=== PATIENT | male | born 1955 | race Caucasian/White ===

== ENCOUNTER 2017-10-01 18:40 | Inpatient (IN) | payer MEDICARE ==
--- NOTE | 2017-10-01 18:50 | ED ---
General Adult HPI - General Stated complaint: Chest Pain Time Seen by Provider: 10/01/17 18:49 - History of Present Illness Initial comments: Dominguez Engle is a 62-year-old male with a past medical history of coronary artery disease within and STEMI in the past, and addition he has a history of alcoholism he is currently in treatment for alcohol detox, he is day 11 and his treatment facility. He presents to the emergency department today for evaluation of chest pain. Patient reports that on Sunday he was walking upstairs when he developed pain in the left side of his chest radiating to his jaw and his arm. It's that the pain improves with rest but has occurred intermittently since that time and every time it has occurred a has been worse. Today he told the providers at the rehab facility that he was experiencing this pain and they with this decision to 911 for transfer to the emergency department for evaluation. states that this pain is identical in nature to his previous myocardial infarction. He states that that occurred in 2013, he states that he had a cardiac cath at that time but no stents were placed. He was told by his graphic production artist that if it occurred again he would have to have stents placed. Patient previously followed with cardiology at an outside hospital. - Related Data Home Medications Medication Instructions Recorded Confirmed Acetaminophen [Tylenol] 650 mg PO Q4H PRN 10/01/17 10/01/17 Calcium/Magnesium 1000mg/500mg 1 tab PO TID PRN 10/01/17 10/01/17 Chlorpheniramine Maleate 4 mg PO Q4H PRN 10/01/17 10/01/17 [Chlor-Trimeton] Fluphenazine HCl [fluPHENAZine HCL] 1 mg PO DAILY@0600 10/01/17 10/01/17 Ibuprofen [Motrin] 600 mg PO Q6HR PRN 10/01/17 10/01/17 Multivitamins, Thera [Multivitamin 1 tab PO DAILY 10/01/17 10/01/17 (formulary)] Nicotine 21Mg/24Hr Patch [Habitrol 1 patch TRANSDERM DAILY 10/01/17 10/01/17 21Mg/24Hr Patch] Ondansetron HCl [Zofran] 8 mg PO Q6H PRN 10/01/17 10/01/17 Ondansetron [Zofran] 4 mg IM Q6H PRN 10/01/17 10/01/17 PARoxetine [Paxil] 20 mg PO DAILY@0600 10/01/17 10/01/17 Pantoprazole Sodium [Protonix] 40 mg PO DAILY@0600 10/01/17 10/01/17 Thiamine [Vitamin B-1] 100 mg PO DAILY 10/01/17 10/01/17 busPIRone HCl [Buspar] 10 mg PO DIRECTED PRN 10/01/17 10/01/17 cloNIDine HCL [Catapres] 0.1 mg PO Q4H PRN 10/01/17 10/01/17 guaiFENesin [guaiFENesin Oral 200 mg PO Q4H PRN 10/01/17 10/01/17 Solution] traZODone HCL 50 - 150 mg PO HS 10/01/17 10/01/17 Allergies Allergy/AdvReac Type Severity Reaction Status Date / Time ketorolac [From Toradol] Allergy Severe Rash/Hives Verified 10/01/17 19:03 nitroglycerin Allergy Severe Rash/Hives Verified 10/01/17 19:03 morphine Allergy Unknown Verified 10/01/17 19:03 Review of Systems ROS Statement: Those systems with pertinent positive or pertinent negative responses have been documented in the HPI. ROS Other: All systems not noted in ROS Statement are negative. Constitutional: Denies: fever ENT: Denies: ear pain, throat pain Respiratory: Denies: cough, dyspnea Cardiovascular: Reports: chest pain, dyspnea on exertion Endocrine: Denies: fatigue Gastrointestinal: Denies: abdominal pain, nausea, vomiting Genitourinary: Denies: urgency, dysuria Musculoskeletal: Denies: back pain Skin: Denies: rash Neurological: Denies: headache Psychiatric: Reports: anxiety Hematological/Lymphatic: Denies: easy bleeding, easy bruising Past Medical History Past Medical History: Cancer (esophageal - treated with radiation 2013), Hyperlipidemia, Myocardial Infarction ([place]) General Exam Limitations: no limitations General appearance: alert, anxious Head exam: Present: atraumatic, normocephalic Eye exam: Present: PERRL ENT exam: Present: normal exam Respiratory exam: Absent: respiratory distress Cardiovascular Exam: Present: regular rate, normal rhythm GI/Abdominal exam: Present: soft. Absent: distended Rectal exam: Present: deferred Extremities exam: Present: full ROM, normal capillary refill Neurological exam: Present: alert, oriented X3 Psychiatric exam: Present: agitated Skin exam: Present: warm, dry Course Vital Signs 10/01/17 10/01/17 10/01/17 18:52 19:50 21:00 Temperature 101.4 F H 100.2 F H Pulse Rate 94 92 89 Respiratory 18 16 18 Rate Blood Pressure 136/81 114/62 122/69 O2 Sat by Pulse 98 97 96 Oximetry 10/01/17 21:37 Temperature 100.2 F H Pulse Rate 90 Respiratory 18 Rate Blood Pressure 123/67 O2 Sat by Pulse 95 Oximetry Medical Decision Making - Medical Decision Making The patient was seen and evaluated, history was obtained from the patient, patient with intermittent left-sided chest pain, worse with exertion. This has been occurring since Sunday. It is associated with pain radiating to the jaw the shoulder. Patient is high risk for acute coronary syndrome as he has a history of coronary artery disease. Imaging were ordered EKG reveals a normal sinus rhythm with a rate of 96 There was a delay in attaining blood due to patient's vascular the, patient is a previous IV heroin user with very poor access. He states that previously he has had have IVs placed in his neck. POTASH FLAKER was able to place an IV and obtained blood. Labs reveal anemia with a hemoglobin of 10.6, no leukocytosis, Cardiac labs are normal Considering the patient's history and risk factors I do feel that he needs to be admitted for evaluation by cardiology. The patient is to be placed in observation on telemetry monitoring. - Lab Data Result diagrams: 10/01/17 20:12 10/01/17 18:56 Lab Results 10/01/17 10/01/17 10/01/17 Range/Units 18:56 20:12 20:12 WBC 8.0 (3.8-10.6) k/uL RBC 4.15 L (4.30-5.90) m/uL Hgb 10.6 L (13.0-17.5) gm/dL Hct 32.8 L (39.0-53.0) % MCV 79.1 L (80.0-100.0) fL MCH 25.6 (25.0-35.0) pg MCHC 32.3 (31.0-37.0) g/dL RDW 16.5 H (11.5-15.5) % Plt Count 153 (150-450) k/uL Neutrophils % 71 % Lymphocytes % 17 % Monocytes % 7 % Eosinophils % 1 % Basophils % 0 % Neutrophils # 5.7 (1.3-7.7) k/uL Lymphocytes # 1.4 (1.0-4.8) k/uL Monocytes # 0.5 (0-1.0) k/uL Eosinophils # 0.1 (0-0.7) k/uL Basophils # 0.0 (0-0.2) k/uL Anisocytosis Slight Microcytosis Slight PT 9.9 (9.0-12.0) sec INR 1.0 (<1.2) APTT 26.6 (22.0-30.0) sec Sodium 138 (137-145) mmol/L Potassium 4.5 (3.5-5.1) mmol/L Chloride 106 (98-107) mmol/L Carbon Dioxide 23 (22-30) mmol/L Anion Gap 9 mmol/L BUN 20 (9-20) mg/dL Creatinine 0.70 (0.66-1.25) mg/dL Est GFR (CKD-EPI)AfAm >90 (>60 ml/min/1.73 sqM) Est GFR (CKD-EPI)NonAf >90 (>60 ml/min/1.73 sqM) Glucose 90 (74-99) mg/dL Calcium 8.8 (8.4-10.2) mg/dL Magnesium 1.8 (1.6-2.3) mg/dL Total Bilirubin 0.6 (0.2-1.3) mg/dL AST 34 (17-59) U/L ALT 45 (21-72) U/L Alkaline Phosphatase 98 (38-126) U/L Total Creatine Kinase (55-170) U/L CK-MB (CK-2) (0.0-2.4) ng/mL CK-MB (CK-2) Rel Index Troponin I (0.000-0.034) ng/mL NT-Pro-B Natriuret Pep pg/mL Total Protein 6.5 (6.3-8.2) g/dL Albumin 3.6 (3.5-5.0) g/dL 10/01/17 10/01/17 Range/Units 20:12 20:12 WBC (3.8-10.6) k/uL RBC (4.30-5.90) m/uL Hgb (13.0-17.5) gm/dL Hct (39.0-53.0) % MCV (80.0-100.0) fL MCH (25.0-35.0) pg MCHC (31.0-37.0) g/dL RDW (11.5-15.5) % Plt Count (150-450) k/uL Neutrophils % % Lymphocytes % % Monocytes % % Eosinophils % % Basophils % % Neutrophils # (1.3-7.7) k/uL Lymphocytes # (1.0-4.8) k/uL Monocytes # (0-1.0) k/uL Eosinophils # (0-0.7) k/uL Basophils # (0-0.2) k/uL Anisocytosis Microcytosis PT (9.0-12.0) sec INR (<1.2) APTT (22.0-30.0) sec Sodium (137-145) mmol/L Potassium (3.5-5.1) mmol/L Chloride (98-107) mmol/L Carbon Dioxide (22-30) mmol/L Anion Gap mmol/L BUN (9-20) mg/dL Creatinine (0.66-1.25) mg/dL Est GFR (CKD-EPI)AfAm (>60 ml/min/1.73 sqM) Est GFR (CKD-EPI)NonAf (>60 ml/min/1.73 sqM) Glucose (74-99) mg/dL Calcium (8.4-10.2) mg/dL Magnesium (1.6-2.3) mg/dL Total Bilirubin (0.2-1.3) mg/dL AST (17-59) U/L ALT (21-72) U/L Alkaline Phosphatase (38-126) U/L Total Creatine Kinase 51 L (55-170) U/L CK-MB (CK-2) 0.2 (0.0-2.4) ng/mL CK-MB (CK-2) Rel Index 0.4 Troponin I <0.012 (0.000-0.034) ng/mL NT-Pro-B Natriuret Pep 75 pg/mL Total Protein (6.3-8.2) g/dL Albumin (3.5-5.0) g/dL Disposition Clinical Impression: Chest pain, Anemia, CAD (coronary artery disease) Disposition: ADMITTED IP TO THIS HOSP Referrals: None,Stated [Primary Care Provider] - 1-2 days Decision Time: 22:25
[2017-10-01] MEDS ORDERED: SODIUM CHLORIDE 0.9% 1,000 ML IV STA (18:56)
[2017-10-01 20:10] LABS: Creatine Kinase 51 U/L (55-170)
[2017-10-01 20:13] LABS: ALT 45 U/L (21-72); AST 34 U/L (17-59); Albumin 3.6 g/dL (3.5-5.0); Alkaline Phosphatase 98 U/L (38-126); Anion Gap 9 mmol/L; Blood Urea Nitrogen 20 mg/dL (9-20); Calcium 8.8 mg/dL (8.4-10.2); Carbon Dioxide 23 mmol/L (22-30); Chloride 106 mmol/L (98-107); Glucose 90 mg/dL (74-99); Magnesium 1.8 mg/dL (1.6-2.3); Potassium 4.5 mmol/L (3.5-5.1); Sodium 138 mmol/L (137-145); Total Bilirubin 0.6 mg/dL (0.2-1.3); Total Protein 6.5 g/dL (6.3-8.2)
[2017-10-01] MEDS ORDERED: LIDOCAINE 1% INJ 10MG/ML (20 ML MDV) SQ ONE (20:15)
[2017-10-01 20:24] LABS: Anisocytosis Slight; Basophils % (A) 0 %; Eosinophils # (A) 0.1 k/uL (0-0.7); Eosinophils % (A) 1 %; HCT 32.8 % (39.0-53.0); HGB 10.6 gm/dL (13.0-17.5); Lymphocytes # (A) 1.4 k/uL (1.0-4.8); Lymphocytes % (A) 17 %; MCH 25.6 pg (25.0-35.0); MCHC 32.3 g/dL (31.0-37.0); MCV 79.1 fL (80.0-100.0); Mean Platelet Volume 7.1; Microcytosis Slight; Monocytes # (A) 0.5 k/uL (0-1.0); Monocytes % (A) 7 %; Neutrophils # (A) 5.7 k/uL (1.3-7.7); Neutrophils % (A) 71 %; Platelet Count 153 k/uL (150-450); RBC 4.15 m/uL (4.30-5.90); RDW 16.5 % (11.5-15.5); Troponin I <0.012 ng/mL (0.000-0.034)
[2017-10-01 20:25] LABS: Creatine Kinase MB 0.2 ng/mL (0.0-2.4)
[2017-10-01 20:35] LABS: Partial Thromboplastin Time 26.6 sec (22.0-30.0); Prothrombin Time 9.9 sec (9.0-12.0)
--- NOTE | 2017-10-01 21:11 | XR ---
EXAMINATION TYPE: XR chest 2V DATE OF EXAM: 10/01/2017 COMPARISON: 05/03/2011 HISTORY: Chest pain TECHNIQUE: Frontal and lateral views of the chest are obtained. FINDINGS: There is coarsening of pulmonary interstitial markings. Heart size is normal. There is no pleural effusion. Bony thorax is intact. There is no pleural effusion. IMPRESSION: Pulmonary interstitial fibrotic changes appear new compared to old exam. No heart failur e.
[2017-10-01] MEDS ORDERED: NALOXONE 0.4 MG/ML 1 ML VIAL IV PRN (22:25)
[2017-10-01] MEDS: ACETAMINOPHEN TAB 325 MG TAB PO PRN (22:46)
[2017-10-02 10:04] LABS: Anion Gap 7 mmol/L; Blood Urea Nitrogen 16 mg/dL (9-20); Calcium 8.4 mg/dL (8.4-10.2); Carbon Dioxide 22 mmol/L (22-30); Chloride 108 mmol/L (98-107); Glucose 93 mg/dL (74-99); Potassium 4.6 mmol/L (3.5-5.1); Sodium 137 mmol/L (137-145)
[2017-10-02] MEDS: NICOTINE 21MG/24HR PATCH TRANSDERM SCH (10:06)
[2017-10-02 10:18] LABS: Anisocytosis Slight; Basophils % (A) 0 %; Eosinophils # (A) 0.1 k/uL (0-0.7); Eosinophils % (A) 2 %; HCT 35.1 % (39.0-53.0); HGB 11.3 gm/dL (13.0-17.5); Hypochromasia Slight; Lymphocytes % (A) 14 %; MCH 25.9 pg (25.0-35.0); MCHC 32.3 g/dL (31.0-37.0); MCV 80.2 fL (80.0-100.0); Mean Platelet Volume 7.7; Monocytes # (A) 0.6 k/uL (0-1.0); Monocytes % (A) 8 %; Neutrophils # (A) 5.2 k/uL (1.3-7.7); Neutrophils % (A) 72 %; Platelet Count 150 k/uL (150-450); RBC 4.37 m/uL (4.30-5.90); RDW 16.4 % (11.5-15.5); WBC 7.3 k/uL (3.8-10.6)
--- NOTE | 2017-10-02 15:12 | P.HPIM ---
History of Present Illness This is a pleasant 8 years old male with past medical history of coronary artery disease status post cardiac cath, CVA/TIA with left-sided josiah-plegia and he uses cane/Walker , GERD, hypertension, alcohol abuse, IV drug abuse, Fernando's esophagus with esophageal cancer, status post surgery/radiation with a partial esophagoctomy, is currently at [facility] for alcohol rehab, current smoker. He presents because of central chest pain radiating to the left arm for about one week duration, comes and goes and states for about 2 hours however is now getting progressively longer sustained for about half a day as per patient, the chest pain is increased with exertion, or when going upstairs or down stairs. Not associated with dyspnea, no nausea vomiting. No sweating. No change in urine or bowel habits. However he states he is peeing more than usual however he denies dysuria or urgency Patient was complaining of from cough with white phlegm for about one week duration In the ED patient had a fever of 101.4 on admission. CBC was unremarkable except for mild anemia at 11.3, INR 1.0, sodium 137, potassium 4.6, creatinine 0.6. LFTs were unremarkable, serial troponins were negative, proBNP is 75, chest x-ray shows pulmonary interstitial fibrotic changes with a new compared to old exam. Review of Systems CONSTITUTIONAL: No fever, no malaise, no fatigue. HEENT: No recent visual problems or hearing problems. Denied any sore throat. CARDIOVASCULAR: No orthopnea, PND, no palpitations, no syncope. PULMONARY: No shortness of breath, no hemoptysis. GASTROINTESTINAL: No diarrhea, no nausea, no vomiting, no abdominal pain. Normoactive bowel sounds. NEUROLOGICAL: No headaches, no weakness, no numbness. HEMATOLOGICAL: Denies any bleeding or petechiae. GENITOURINARY: Denies any burning micturition, or urgency. MUSCULOSKELETAL/RHEUMATOLOGICAL: Denies any joint pain, swelling, or any muscle pain. ENDOCRINE: Denies any polyuria or polydipsia. Past Medical History Past Medical History: Coronary Artery Disease (CAD), Cancer, CVA/TIA, GERD/ Reflux, Hypertension, Myocardial Infarction ([place]) Additional Past Medical History / Comment(s): Recent URI with antibiotic, CVA with L sided weakness/dysphagia, ETOH abuse, fernando's esophagus, IVDA, esophageal cancer with surgery/radiation and now raspy voice, past MRSA infection in lungs with extensive hospitalization at [facility] in 2016 per pt. Last Myocardial Infarction Date:: 2013 History of Any Multi-Drug Resistant Organisms: MRSA Date of last positivie culture/infection: 2015 MDRO Source:: lungs-tx at [facility]. Past Surgical History: Cholecystectomy, Heart Catheterization Additional Past Surgical History / Comment(s): Partial esophagectomy, feeding tubes x 6-out now, EGDs, cardiac cath-no intervention. Past Anesthesia/Blood Transfusion Reactions: No Reported Reaction Additional Past Anesthesia/Blood Transfusion Reaction / Comment(s): Pt has received blood before without reaction. Past Psychological History: Bipolar Additional Psychological History / Comment(s): Pt currently at [facility] past 11 days for relapse with alcohol. Pt states he had been dry for 5 yrs then had a few drinks a couple weeks ago. Pt started smoking in 1973 and is a 2 ppd smoker. Pt normally resides with his significant other. He ambulates with a cane, walker or uses a wheelchair. Smoking Status: Current every day smoker Past Alcohol Use History: Abuse Additional Past Alcohol Use History / Comment(s): Pt has hx of ETOH abuse. He had quit for 5 years with recent relapse about 2 weeks ago. He is currently at [facility]. Past Drug Use History: Heroin Additional Drug Use History / Comment(s): Pt has hx of IV heroin and last used 3 months ago. - Past Family History Father Family Medical History: Cancer, Diabetes Mellitus Additional Family Medical History / Comment(s): Father had throat cancer. He was a smoker. Mother Family Medical History: Diabetes Mellitus, Renal Disease Medications and Allergies Home Medications Medication Instructions Recorded Confirmed Type Acetaminophen [Tylenol] 650 mg PO Q4H PRN 10/01/17 10/01/17 History Calcium/Magnesium 1000mg/500mg 1 tab PO TID PRN 10/01/17 10/01/17 History Chlorpheniramine Maleate 4 mg PO Q4H PRN 10/01/17 10/01/17 History [Chlor-Trimeton] Fluphenazine HCl [fluPHENAZine HCL] 1 mg PO DAILY@0600 10/01/17 10/01/17 History Ibuprofen [Motrin] 600 mg PO Q6HR PRN 10/01/17 10/01/17 History Multivitamins, Thera [Multivitamin 1 tab PO DAILY 10/01/17 10/01/17 History (formulary)] Nicotine 21Mg/24Hr Patch [Habitrol 1 patch TRANSDERM DAILY 10/01/17 10/01/17 History 21Mg/24Hr Patch] Ondansetron HCl [Zofran] 8 mg PO Q6H PRN 10/01/17 10/01/17 History Ondansetron [Zofran] 4 mg IM Q6H PRN 10/01/17 10/01/17 History PARoxetine [Paxil] 20 mg PO DAILY@0600 10/01/17 10/01/17 History Pantoprazole Sodium [Protonix] 40 mg PO DAILY@59910/01/17 10/01/17 History Thiamine [Vitamin B-1] 100 mg PO DAILY 10/01/17 10/01/17 History busPIRone HCl [Buspar] 10 mg PO DIRECTED PRN 10/01/17 10/01/17 History cloNIDine HCL [Catapres] 0.1 mg PO Q4H PRN 10/01/17 10/01/17 History guaiFENesin [guaiFENesin Oral 200 mg PO Q4H PRN 10/01/17 10/01/17 History Solution] traZODone HCL 50 - 150 mg PO HS 10/01/17 10/01/17 History Allergies Allergy/AdvReac Type Severity Reaction Status Date / Time ketorolac [From Toradol] Allergy Severe Rash/Hives Verified 10/01/17 19:03 nitroglycerin Allergy Severe Rash/Hives Verified 10/01/17 19:03 morphine Allergy Unknown Verified 10/01/17 19:03 Physical Exam Vitals: Vital Signs Temp Pulse Resp BP Pulse Ox 10/02/17 14:09 99.8 F H 83 15 104/60 97 10/02/17 08:04 98.3 F 74 18 104/59 95 10/02/17 05:28 79 18 122/69 97 10/02/17 02:09 98.5 F 70 16 115/59 96 10/02/17 00:09 98.8 F 90 18 126/86 95 10/01/17 22:45 101.0 F H 96 18 121/75 95 10/01/17 21:37 100.2 F H 90 18 123/67 95 10/01/17 21:00 89 18 122/69 96 10/01/17 19:50 100.2 F H 92 16 114/62 97 10/01/17 18:52 101.4 F H 94 18 136/81 98 Intake and Output 10/01/17 10/02/17 10/02/17 22:59 06:59 14:59 Other: Voiding Method Toilet Urinal Weight 72.575 kg GENERAL: The patient is alert and oriented x3, not in any acute distress. Well developed, well nourished. HEENT: Pupils are round and equally reacting to light. EOMI. No scleral icterus. No conjunctival pallor. Normocephalic, atraumatic. No pharyngeal erythema. No thyromegaly. CARDIOVASCULAR: S1 and S2 present. No murmurs, rubs, or gallops. PULMONARY: Chest is clear to auscultation, no wheezing or crackles. ABDOMEN: Soft, nontender, nondistended, normoactive bowel sounds. No palpable organomegaly. MUSCULOSKELETAL: No joint swelling or deformity. EXTREMITIES: No cyanosis, clubbing, or pedal edema. NEUROLOGICAL: Gross neurological examination did not reveal any focal deficits. SKIN: No rashes. Results CBC & Chem 7: 10/02/17 09:36 10/02/17 09:36 Labs: Abnormal Lab Results - Last 24 Hours (Table) 10/01/17 10/01/17 10/02/17 Range/Units 20:12 20:12 09:36 RBC 4.15 L (4.30-5.90) m/uL Hgb 10.6 L 11.3 L (13.0-17.5) gm/dL Hct 32.8 L 35.1 L (39.0-53.0) % MCV 79.1 L (80.0-100.0) fL RDW 16.5 H 16.4 H (11.5-15.5) % Chloride (98-107) mmol/L Creatinine (0.66-1.25) mg/dL Total Creatine Kinase 51 L (55-170) U/L 10/02/17 Range/Units 09:36 RBC (4.30-5.90) m/uL Hgb (13.0-17.5) gm/dL Hct (39.0-53.0) % MCV (80.0-100.0) fL RDW (11.5-15.5) % Chloride 108 H (98-107) mmol/L Creatinine 0.64 L (0.66-1.25) mg/dL Total Creatine Kinase (55-170) U/L Assessment and Plan Assessment: -Chest pain syndrome, rule out cardiac cause, we'll do an echo, serial troponins and colon for cardiology consult -Patient with coughing and white phlegm, possible, Community acquired pneumonia with chest x-ray showing interstitial markings increased, pdnding blood culture , sputum culture, check for influenza. Start ceftriaxone and doxycycline. He also will check urine analysis and urine culture for increased frequency. Will call infectious disease consults -History of alcohol abuse, but him on see what protocol, with vitamins -Smoker consult, continue with nicotine patch as patient agrees to quit -History of IV drug abuse, last time was about a month ago, we will check echo and blood culture in view of his fever -History of bipolar, not active issue, continue with same treatment DVT prophylaxis subcutaneous heparin GI prophylaxis on PPI PT/OT evaluation: Pending Prognosis is guarded
[2017-10-02] MEDS: ACETAMINOPHEN TAB 325 MG TAB PO PRN (16:30)
[2017-10-02] MEDS: cefTRIAXone IN SWFI 1,000 MG/10 ML SYRINGE IVP SCH (17:01)
[2017-10-02] MEDS: DEXTROSE 5%-0.9% NACL 1,000 ML IV SCH (17:04)
[2017-10-02 18:50] LABS: Appearance,Urine Clear (Clear); Bilirubin,Urine Negative (Negative); Blood,Urine Negative (Negative); Color,Urine Yellow; Glucose,Urine (UA) Negative (Negative); Ketones,Urine Negative (Negative); Leukocyte Esterase,Urine Negative (Negative); Nitrite,Urine Negative (Negative); Protein,Urine Negative (Negative); Specific Gravity,Urine 1.017 (1.001-1.035); Urobilinogen,Urine <2.0 mg/dL (<2.0)
[2017-10-02] MEDS ORDERED: busPIRone HCl 10 MG TAB PO PRN (19:28)
[2017-10-02] MEDS ORDERED: guaiFENesin SYRUP 100MG/5ML 200 MG/10 ML CUP PO PRN (19:28)
[2017-10-02] MEDS ORDERED: NON-FORMULARY DRUG (Calcium/Magnesium 1000mg/500mg 1 TAB) PO PRN (19:28)
[2017-10-02] MEDS ORDERED: cloNIDine HCL 0.1 MG TAB PO PRN (19:28)
[2017-10-02] MEDS: IBUPROFEN 600 MG TAB PO PRN (21:18)
[2017-10-02] MEDS: diphenhydrAMINE 25 MG CAP PO PRN (21:18)
[2017-10-02] MEDS: HEPARIN SODIUM,PORCINE 5,000 UNIT/ML 1 ML VIAL SQ SCH (21:18)
[2017-10-02] MEDS: DOXYCYCLINE 100 MG in SODIUM CHLORIDE 0.9% 100 ML IVPB SCH (21:18)
[2017-10-03] MEDS ORDERED: diphenhydrAMINE 25 MG CAP ONE (02:25)
[2017-10-03] MEDS: PARoxetine 20 MG TAB PO SCH (06:13)
[2017-10-03] MEDS: IBUPROFEN 600 MG TAB PO PRN ×2 (07:10→20:19)
[2017-10-03 07:30] LABS: Anisocytosis Slight; Basophils % (A) 0 %; Eosinophils # (A) 0.2 k/uL (0-0.7); Eosinophils % (A) 3 %; HCT 40.5 % (39.0-53.0); HGB 12.4 gm/dL (13.0-17.5); Hypochromasia Moderate; Lymphocytes # (A) 1.3 k/uL (1.0-4.8); Lymphocytes % (A) 19 %; MCHC 30.5 g/dL (31.0-37.0); MCV 81.9 fL (80.0-100.0); Mean Platelet Volume 6.7; Monocytes # (A) 0.4 k/uL (0-1.0); Monocytes % (A) 6 %; Neutrophils # (A) 4.7 k/uL (1.3-7.7); Neutrophils % (A) 68 %; Platelet Count 170 k/uL (150-450); RBC 4.95 m/uL (4.30-5.90); RDW 16.4 % (11.5-15.5)
[2017-10-03 07:42] LABS: Anion Gap 12 mmol/L; Blood Urea Nitrogen 19 mg/dL (9-20); Calcium 8.7 mg/dL (8.4-10.2); Carbon Dioxide 21 mmol/L (22-30); Chloride 107 mmol/L (98-107); Glucose 86 mg/dL (74-99); Potassium 4.5 mmol/L (3.5-5.1); Sodium 140 mmol/L (137-145)
[2017-10-03] MEDS ORDERED: PANTOPRAZOLE 40 MG/10 ML VIAL IVP SCH (09:00)
[2017-10-03 09:56] VITALS: BMI 23.8
--- NOTE | 2017-10-03 10:24 | ECHOF ---
Referral Reason:Rule out heart disease MEASUREMENTS -------- HEIGHT: 172.7 cm WEIGHT: 72.6 kg BP: RVIDd: 2.8 cm (< 3.3) IVSd: 1.0 cm (0.6 - 1.1) LVIDd: 2.9 cm (3.9 - 5.3) LVPWd: 1.0 cm (0.6 - 1.1) IVSs: 1.1 cm LVIDs: 2.3 cm LVPWs: 1.1 cm LAESV Index (A-L): 27.69 ml/m Ao Diam: 3.7 cm (2.0 - 3.7) AV Cusp: 1.8 cm (1.5 - 2.6) LA Diam: 2.5 cm (2.7 - 3.8) MV E Kamari: 0.49 m/s MV DecT: 312 ms MV A Kamari: 0.89 m/s MV E/A Ratio: 0.55 RAP: 5.00 mmHg RVSP: 17.14 mmHg FINDINGS -------- Sinus rhythm. This was a technically adequate study. The left ventricular size is normal. Left ventricular wall thickness is normal. Overall left vent ricular systolic function is low-normal with, an EF between 50 - 55 %. The right ventricle is normal in size and function. Normal LA size by volume 22+/-6 ml/m2. The right atrium is normal in size. The aortic valve is trileaflet, and appears structurally normal. No aortic stenosis or regurgitation. The mitral valve leaflets are mildly thickened. There is trace to mild mitral regurgitation. Trace tricuspid regurgitation present. Right ventricular systolic pressure is normal at < 35 mmHg. There is no evidence of pulmonary hypertension. Trace/mild (physiologic) pulmonic regurgitation. The aortic root size is normal. Normal inferior vena cava with normal inspiratory collapse consistent with estimated right atrial pre ssure of 5 mmHg. There is no pericardial effusion. CONCLUSIONS -------- 1. Sinus rhythm. 2. This was a technically adequate study. 3. The left ventricular size is normal. 4. Left ventricular wall thickness is normal. 5. Overall left ventricular systolic function is low-normal with, an EF between 50 - 55 %. 6. Normal LA size by volume 22+/-6 ml/m2. 7. The aortic valve is trileaflet, and appears structurally normal. No aortic stenosis or regurgitati on. 8. The mitral valve leaflets are mildly thickened. 9. There is trace to mild mitral regurgitation. 10. Trace tricuspid regurgitation present. 11. Right ventricular systolic pressure is normal at < 35 mmHg. 12. There is no evidence of pulmonary hypertension. 13. Trace/mild (physiologic) pulmonic regurgitation. 14. The aortic root size is normal. 15. There is no pericardial effusion. ANALYTICAL SCIENTIST: Gage Shay RDCS
[2017-10-03] MEDS: cefTRIAXone IN SWFI 1,000 MG/10 ML SYRINGE IVP SCH (10:46)
[2017-10-03] MEDS: DOXYCYCLINE 100 MG in SODIUM CHLORIDE 0.9% 100 ML IVPB SCH (10:46)
[2017-10-03] MEDS: HEPARIN SODIUM,PORCINE 5,000 UNIT/ML 1 ML VIAL SQ SCH ×3 (10:47→21:31)
[2017-10-03] MEDS: NICOTINE 21MG/24HR PATCH TRANSDERM SCH (10:47)
--- NOTE | 2017-10-03 11:18 | CONS ---
CONSULTATION This is a 62-year-old male patient who presented with cough, expectoration for about a week and complaining of chest discomfort. His cardiac enzymes are normal. ECG does not show any acute ST-segment abnormalities. His past history includes CVA and history of hemiplegia, GERD, hypertension, alcohol abuse, IV drug abuse, Ugarte's esophagus with esophageal cancer, status post radiation, esophagectomy. He has been experiencing central chest discomfort for about 1 week and it is getting progressively longer and longer. He also had a fever of 101.4 on admission, so far cardiac enzymes have been normal. Chest x-ray shows increased interstitial markings in the lungs,constellation of symptoms. He was febrile here, although he did not complain of it prior to admission, he had cough. expectoration. No nausea, vomiting, or diarrhea. No hematuria or dysuria. No strokes, seizures, visual bleed or musculoskeletal complaints. On his past medication, he carries a diagnosis of coronary artery disease, cancer of the esophagus, CVA, hypertension. SOCIAL HISTORY: History of alcohol use and heavy drug abuse. He is a current smoker. MEDICATION LIST: At home includes trazodone, clonidine, thiamine, BuSpar, pantoprazole, Paxil, Zofran, nicotine patch, fluphenazine, calcium, . ALLERGIES: To KETOROLAC, NITROGLYCERIN, MORPHINE. On examination, he was febrile, maximum temperature was 101.4, pulse rate is in the 80s to 90s. Blood pressure normal 104/60 mmHg. Head and neck examination normal. Heart sounds, S1, S2 normal. No murmurs, no gallops, no rub. Breath sounds are reduced bilaterally with no rhonchi, no crackles. Abdomen is soft. Extremities are warm, no edema. His 12-lead ECG shows sinus rhythm at 96 beats per minute. Normal ST segments. His labs are reviewed. Electrolytes are normal. Kidney function is normal. Cardiac enzymes x2 are normal, suggest atypical chest discomfort. #2 Workup for fever and cough with expectoration, a 2D echo and Doppler study. Further cardiac workup can be done as an outpatient and smoking cessation. MMODL / IJN: [id number] /
[2017-10-03] MEDS ORDERED: MULTIVITAMINS, THERA 1 EACH TAB PO SCH (12:00)
--- NOTE | 2017-10-03 13:20 | XR ---
EXAMINATION TYPE: XR chest 2V DATE OF EXAM: 10/03/2017 COMPARISON: 10/01/2017 HISTORY: Shortness of breath TECHNIQUE: Frontal and lateral views of the chest are obtained. FINDINGS: Scattered senescent parenchymal changes noted. Hyperinflation compatible with COPD. No evidence for infiltrate. No evidence for atelectasis. Heart size is stable. Mediastinal structures are stable and grossly unremarkable. No evidence for hilar prominence. Degenerative changes dorsal spine. IMPRESSION: 1. No evidence for acute pulmonary disease.
[2017-10-03] MEDS: DEXTROSE 5%-0.9% NACL 1,000 ML IV SCH (13:26)
[2017-10-03] MEDS: FOLIC ACID 1 MG TAB PO SCH (13:27)
[2017-10-03] MEDS: THIAMINE 100 MG TAB PO SCH (13:27)
[2017-10-03] MEDS: LEVOFLOXACIN 750 MG TAB PO SCH (13:27)
[2017-10-03] MEDS: ACETAMINOPHEN TAB 325 MG TAB PO PRN ×2 (13:27→23:21)
[2017-10-03] MEDS: MULTIVITAMINS, THERA 1 EACH TAB PO SCH (13:27)
--- NOTE | 2017-10-03 14:51 | CONS ---
CONSULTATION DATE OF SERVICE: 10/03/2017 REASON FOR CONSULTATION: Fever. HISTORY OF PRESENT ILLNESS: The patient is a 62-year-old male presenting to the ER at [facility] on 10/01/2017 with a chief complaint of chest pain. Patient's symptom has been going on since Thursday, September 28, 2017. Pain has been mostly on the left side, more of a sharp in nature 4 to 5/10, and no radiation. The patient also have associated cough and bringing up some whitish to yellow sputum for the same duration. Patient denies any hemoptysis, shortness of breath with minimal exertion. Denies having any URI symptoms. No nausea, vomiting; however, the patient did have diarrhea for the same duration. With these symptoms, the patient has been brought to the ER where the patient has been evaluated by the ER physician. A chest x-ray was done which was showing new fibrotic changes, interstitial, no heart failure. Patient did have a fever of 101.4 degrees Fahrenheit to 101 subsequently. Patient has been started on Rocephin and admitted to hospital. Infectious Disease was consulted for further recommendation of antibiotic therapy. Patient did have influenza PCR that was negative and UA has been negative. REVIEW OF SYSTEMS: CONSTITUTIONAL: Positive for weakness along with the fever. EYES: No complaint. ENT: No complaint. RESPIRATORY: As per HPI. CARDIOVASCULAR: As per HPI. GENITOURINARY: No complaint. GASTROINTESTINAL: No complaint. MUSCULOSKELETAL: No clubbing deformity, no complaint. PSYCHOLOGICAL: No complaint. ENDOCRINE: No complaint. NEUROLOGIC: No complaint. PAST MEDICAL HISTORY: Significant for esophageal cancer, hyperlipidemia, IA, coronary artery disease, CVA, TIA, gastroesophageal reflux disease, hypertension. PAST SURGICAL HISTORY: Significant for cholecystectomy, heart catheterization, possible esophagectomy, feeding tube . SOCIAL HISTORY: Has history of smoking, he quit 5 years ago, history of alcohol abuse and also history of heroin abuse, the last IV heroin was 3 months ago. FAMILY HISTORY: Father, history of throat cancer and diabetes. Mother, history of diabetes mellitus and renal disease. ALLERGIES: To KETORALAC, NITROGLYCERIN, MORPHINE. MEDICATION: The patient is currently on Tylenol, BuSpar, Rocephin 1 g daily, Benadryl, doxycycline 100 mg twice a day, Robitussin, heparin, Motrin, Theragran, Narcan, nicotine patch, Protonix, , vitamin B1. PHYSICAL EXAMINATION: Blood pressure is 113/66 with a pulse of 92, temperature 98.3, he is 97% on room air. General description is a middle-aged male, lying in bed in no distress. No tachypnea or accessory muscle for respiration use. HEENT EXAMINATION: Shows no pallor or scleral icterus. Oral mucosa is dry. No pharyngeal erythema present. NECK: Trachea central, no thyromegaly. LUNGS: Unlabored breathing with decreased breath sounds. No wheeze or crackle. HEART: S1, S2. Regular rate and rhythm. ABDOMEN: Soft, no tenderness, no guarding, no rigidity. EXTREMITIES: No edema of the feet. SKIN EXAMINATION: No rash or mass palpable. NEUROLOGICAL: Patient is awake, alert, oriented, mood and affect normal. LABS: Hemoglobin is 12.4, white count 7.0, BUN of 19, creatinine 0.77. Electrolytes have been normal. Urine negative. Influenza PCR was negative. X-ray report of possible interstitial infiltrate. DIAGNOSTIC IMPRESSION AND PLAN: Patient admitted to the hospital with fever, chest pain, he did have a cough, bringing up some whitish sputum with it. Patient did have predominant GI symptoms of diarrhea with question of possible atypical pneumonia/Legionella at the top of the list. Patient currently with no other clinical focus for this fever or infection with abdominal soft on clinical examination. No evidence of any cellulitis. UA was negative and influenza PCR was negative. PLAN: 1. Will check urine for Legionella and try to obtain sputum for Gram stain culture and sensitivity. 2. Continue patient on Rocephin; however, add Levaquin 750 p.o. daily. 3. Repeat a chest x-ray, PA and lateral. 4. Will follow up on clinical condition and culture to further adjust medication if needed. Thank you for this consultation. Will follow this patient along with you. MMODL / IJN: [id number] /
--- NOTE | 2017-10-03 16:32 | P.PN ---
Subjective This is a pleasant 8 years old male with past medical history of coronary artery disease status post cardiac cath, CVA/TIA with left-sided josiah-plegia and he uses cane/Walker , GERD, hypertension, alcohol abuse, IV drug abuse, Ugarte's esophagus with esophageal cancer, status post surgery/radiation with a partial esophagoctomy, is currently at [facility] for alcohol rehab, current smoker. He presents because of central chest pain radiating to the left arm for about one week duration, comes and goes and states for about 2 hours however is now getting progressively longer sustained for about half a day as per patient, the chest pain is increased with exertion, or when going upstairs or down stairs. Not associated with dyspnea, no nausea vomiting. No sweating. No change in urine or bowel habits. However he states he is peeing more than usual however he denies dysuria or urgency Patient was complaining of from cough with white phlegm for about one week duration In the ED patient had a fever of 101.4 on admission. CBC was unremarkable except for mild anemia at 11.3, INR 1.0, sodium 137, potassium 4.6, creatinine 0.6. LFTs were unremarkable, serial troponins were negative, proBNP is 75, chest x-ray shows pulmonary interstitial fibrotic changes with a new compared to old exam. Objective - Vital Signs Vital signs: Vital Signs Temp 98.2 F 10/03/17 15:54 Pulse 68 10/03/17 15:54 Resp 18 10/03/17 15:54 BP 106/62 10/03/17 15:54 Pulse Ox 99 10/03/17 15:54 Intake & Output 10/02/17 10/03/17 10/03/17 18:59 06:59 18:59 Intake Total 420 400 Balance 420 400 Weight 71 kg 71 kg Intake: Oral 420 400 Other: Voiding Method Toilet Toilet Toilet Urinal Urinal Urinal # Voids 3 - Exam GENERAL: The patient is alert and oriented x3, not in any acute distress. Well developed, well nourished. HEENT: Pupils are round and equally reacting to light. EOMI. No scleral icterus. No conjunctival pallor. Normocephalic, atraumatic. No pharyngeal erythema. No thyromegaly. CARDIOVASCULAR: S1 and S2 present. No murmurs, rubs, or gallops. PULMONARY: Chest is clear to auscultation, no wheezing or crackles. ABDOMEN: Soft, nontender, nondistended, normoactive bowel sounds. No palpable organomegaly. MUSCULOSKELETAL: No joint swelling or deformity. EXTREMITIES: No cyanosis, clubbing, or pedal edema. NEUROLOGICAL: Gross neurological examination did not reveal any focal deficits. SKIN: No rashes. - Labs CBC & Chem 7: 10/03/17 06:43 10/03/17 06:43 Labs: Abnormal Lab Results - Last 24 Hours (Table) 10/03/17 10/03/17 Range/Units 06:43 06:43 Hgb 12.4 L (13.0-17.5) gm/dL MCHC 30.5 L (31.0-37.0) g/dL RDW 16.4 H (11.5-15.5) % Carbon Dioxide 21 L (22-30) mmol/L Microbiology - Last 24 Hours (Table) 10/02/17 18:00 Urine Culture - Preliminary Urine,Voided Assessment and Plan Assessment: -Chest pain syndrome, echo: EF 50-55%, no aortic stenosis, left ventricle size is normal and wall thickness is normal , cardiology consult is appreciated -Patient with coughing and white phlegm, possible, Community acquired pneumonia with chest x-ray showing interstitial markings increased, repeat chest x-ray from 10/03: No acute process . blood culture & sputum culture: Pending, .influenza: Negative. Start ceftriaxone and Levaquin. urine analysis : Negative and urine .infectious disease consults is appreciated. Patient last fever was less than 24 hours ago -History of alcohol abuse, put him on CIWA protocol, with vitamins -Smoker consult, continue with nicotine patch as patient agrees to quit -History of IV drug abuse, last time was about a month ago, echo: Ejection fraction 50-55% (See form report) -History of bipolar, not active issue, continue with same treatment DVT prophylaxis subcutaneous heparin GI prophylaxis on PPI PT/OT evaluation: Home independently
[2017-10-04] MEDS: diphenhydrAMINE 25 MG CAP PO PRN (01:01)
[2017-10-04 06:04] LABS: Anion Gap 9 mmol/L; Blood Urea Nitrogen 24 mg/dL (9-20); Calcium 8.7 mg/dL (8.4-10.2); Carbon Dioxide 23 mmol/L (22-30); Chloride 109 mmol/L (98-107); Glucose 115 mg/dL (74-99); Potassium 4.6 mmol/L (3.5-5.1); Sodium 141 mmol/L (137-145)
[2017-10-04 06:39] LABS: Anisocytosis Slight; Basophils % (A) 0 %; Eosinophils # (A) 0.3 k/uL (0-0.7); Eosinophils % (A) 4 %; HCT 36.7 % (39.0-53.0); HGB 11.9 gm/dL (13.0-17.5); Hypochromasia Slight; Lymphocytes # (A) 1.5 k/uL (1.0-4.8); Lymphocytes % (A) 21 %; MCH 25.8 pg (25.0-35.0); MCHC 32.3 g/dL (31.0-37.0); MCV 79.9 fL (80.0-100.0); Mean Platelet Volume 7.3; Microcytosis Slight; Monocytes # (A) 0.4 k/uL (0-1.0); Monocytes % (A) 6 %; Neutrophils # (A) 4.5 k/uL (1.3-7.7); Neutrophils % (A) 65 %; Platelet Count 195 k/uL (150-450); RBC 4.59 m/uL (4.30-5.90); RDW 16.4 % (11.5-15.5); WBC 6.9 k/uL (3.8-10.6)
[2017-10-04] MEDS: HEPARIN SODIUM,PORCINE 5,000 UNIT/ML 1 ML VIAL SQ SCH ×2 (09:17→21:27)
[2017-10-04] MEDS: DEXTROSE 5%-0.9% NACL 1,000 ML IV SCH (09:17)
[2017-10-04] MEDS: IBUPROFEN 600 MG TAB PO PRN (09:29)
[2017-10-04] MEDS: NICOTINE 21MG/24HR PATCH TRANSDERM SCH (09:29)
[2017-10-04] MEDS: THIAMINE 100 MG TAB PO SCH (09:30)
[2017-10-04] MEDS: cefTRIAXone IN SWFI 1,000 MG/10 ML SYRINGE IVP SCH (09:30)
[2017-10-04] MEDS: MULTIVITAMINS, THERA 1 EACH TAB PO SCH (09:30)
[2017-10-04] MEDS: FOLIC ACID 1 MG TAB PO SCH (09:30)
[2017-10-04] MEDS: PARoxetine 20 MG TAB PO SCH (09:30)
[2017-10-04] MEDS: PANTOPRAZOLE 40 MG TABLET PO SCH (09:30)
[2017-10-04] MEDS: LEVOFLOXACIN 750 MG TAB PO SCH (14:15)
[2017-10-04] MEDS: ACETAMINOPHEN TAB 325 MG TAB PO PRN (14:16)
--- NOTE | 2017-10-04 20:57 | P.PN ---
Subjective This is a pleasant 8 years old male with past medical history of coronary artery disease status post cardiac cath, CVA/TIA with left-sided josiah-plegia and he uses cane/Walker , GERD, hypertension, alcohol abuse, IV drug abuse, Ugarte's esophagus with esophageal cancer, status post surgery/radiation with a partial esophagoctomy, is currently at [facility] for alcohol rehab, current smoker. He presents because of central chest pain radiating to the left arm for about one week duration, comes and goes and states for about 2 hours however is now getting progressively longer sustained for about half a day as per patient, the chest pain is increased with exertion, or when going upstairs or down stairs. Not associated with dyspnea, no nausea vomiting. No sweating. No change in urine or bowel habits. However he states he is peeing more than usual however he denies dysuria or urgency Patient was complaining of from cough with white phlegm for about one week duration In the ED patient had a fever of 101.4 on admission. CBC was unremarkable except for mild anemia at 11.3, INR 1.0, sodium 137, potassium 4.6, creatinine 0.6. LFTs were unremarkable, serial troponins were negative, proBNP is 75, chest x-ray shows pulmonary interstitial fibrotic changes with a new compared to old exam. Objective - Vital Signs Vital signs: Vital Signs Temp 98.6 F 10/04/17 18:55 Pulse 70 10/04/17 18:55 Resp 16 10/04/17 18:55 BP 104/67 10/04/17 18:55 Pulse Ox 98 10/04/17 18:55 Intake & Output 10/04/17 10/04/17 10/05/17 06:59 18:59 06:59 Intake Total 476 Balance 476 Weight 71 kg Intake: Oral 476 Other: Voiding Method Toilet Toilet Urinal Urinal # Voids 1 - Exam GENERAL: The patient is alert and oriented x3, not in any acute distress. Well developed, well nourished. HEENT: Pupils are round and equally reacting to light. EOMI. No scleral icterus. No conjunctival pallor. Normocephalic, atraumatic. No pharyngeal erythema. No thyromegaly. CARDIOVASCULAR: S1 and S2 present. No murmurs, rubs, or gallops. PULMONARY: Chest is clear to auscultation, no wheezing or crackles. ABDOMEN: Soft, nontender, nondistended, normoactive bowel sounds. No palpable organomegaly. MUSCULOSKELETAL: No joint swelling or deformity. EXTREMITIES: No cyanosis, clubbing, or pedal edema. NEUROLOGICAL: Gross neurological examination did not reveal any focal deficits. SKIN: No rashes. - Labs CBC & Chem 7: 10/04/17 05:31 10/04/17 05:31 Labs: Abnormal Lab Results - Last 24 Hours (Table) 10/04/17 10/04/17 Range/Units 05:31 05:31 Hgb 11.9 L (13.0-17.5) gm/dL Hct 36.7 L (39.0-53.0) % MCV 79.9 L (80.0-100.0) fL RDW 16.4 H (11.5-15.5) % Chloride 109 H (98-107) mmol/L BUN 24 H (9-20) mg/dL Glucose 115 H (74-99) mg/dL Microbiology - Last 24 Hours (Table) 10/02/17 16:17 Blood Culture - Preliminary Blood No Growth after 48 hours 10/02/17 18:00 Urine Culture - Final Urine,Voided Assessment and Plan Assessment: -Chest pain syndrome, echo: EF 50-55%, no aortic stenosis, left ventricle size is normal and wall thickness is normal , cardiology consult is appreciated -Patient with coughing and white phlegm, possible, Community acquired pneumonia with chest x-ray showing interstitial markings increased, repeat chest x-ray from 10/03: No acute process . blood culture & sputum culture: Pending, .influenza: Negative. Start ceftriaxone and Levaquin. urine analysis : Negative and urine .infectious disease consults is appreciated. Patient last fever was less than 48 hours ago ,we will continue to mintor for vitals including temp and labs -History of alcohol abuse, put him on CIWA protocol, with vitamins -Smoker counsult, continue with nicotine patch as patient agrees to quit -History of IV drug abuse, last time was about a month ago, echo: Ejection fraction 50-55% (See form report) -History of bipolar, not active issue, continue with same treatment DVT prophylaxis subcutaneous heparin GI prophylaxis on PPI PT/OT evaluation: Home independently
--- NOTE | 2017-10-04 23:18 | PN ---
PROGRESS NOTE DATE OF SERVICE: 10/04/2017. REASON FOR FOLLOW UP: Fever, possible pneumonia. INTERVAL HISTORY: The patient is afebrile, has been breathing comfortably. His chest pain has improved. The cough has decreased. Denies any significant abdominal pain. No nausea, vomiting and his diarrhea has resolved. EXAMINATION: Blood pressure 104/67, pulse of 73, temperature 98.6. He is 98% on room air. General description is a middle-aged male lying in bed in no distress. RESPIRATORY SYSTEM: Unlabored breathing. Clear to auscultation anteriorly. HEART: S1, S2. Regular rate and rhythm noted. ABDOMEN: Soft. No tenderness. LABS: Hemoglobin 11.9, white count of 6.9 with a BUN of 24, creatinine 0.84. DIAGNOSTIC IMPRESSION AND PLAN: Patient admitted to hospital with a fever, chest pain and a cough, likely secondary to pneumonia, possible community-acquired. Patient to continue with Levaquin and Rocephin with a plan to repeat the Levaquin 750 daily for another 5-7 days to finish a course of therapy. Continue with supportive care. MMODL / IJN: [id number] /
[2017-10-05] MEDS: DEXTROSE 5%-0.9% NACL 1,000 ML IV SCH (05:07)
[2017-10-05 07:53] LABS: Anisocytosis Slight; Basophils % (A) 0 %; Eosinophils # (A) 0.3 k/uL (0-0.7); Eosinophils % (A) 4 %; HCT 41.7 % (39.0-53.0); HGB 13.5 gm/dL (13.0-17.5); Hypochromasia Slight; Lymphocytes # (A) 1.7 k/uL (1.0-4.8); Lymphocytes % (A) 19 %; MCH 25.7 pg (25.0-35.0); MCHC 32.4 g/dL (31.0-37.0); MCV 79.4 fL (80.0-100.0); Mean Platelet Volume 7.3; Microcytosis Slight; Monocytes # (A) 0.7 k/uL (0-1.0); Monocytes % (A) 8 %; Neutrophils # (A) 6.2 k/uL (1.3-7.7); Neutrophils % (A) 67 %; Platelet Count 259 k/uL (150-450); RBC 5.25 m/uL (4.30-5.90); RDW 16.1 % (11.5-15.5); WBC 9.3 k/uL (3.8-10.6)
[2017-10-05 07:58] VITALS: BP 106/72; PULSE 82; RESP 18; TEMP 98.3
[2017-10-05 08:34] LABS: Anion Gap 12 mmol/L; Blood Urea Nitrogen 26 mg/dL (9-20); Calcium 9.3 mg/dL (8.4-10.2); Carbon Dioxide 22 mmol/L (22-30); Chloride 105 mmol/L (98-107); Glucose 96 mg/dL (74-99); Potassium 5.4 mmol/L (3.5-5.1); Sodium 139 mmol/L (137-145)
[2017-10-05] MEDS: PANTOPRAZOLE 40 MG TABLET PO SCH (09:23)
[2017-10-05] MEDS: PARoxetine 20 MG TAB PO SCH (09:23)
[2017-10-05] MEDS: NICOTINE 21MG/24HR PATCH TRANSDERM SCH (09:23)
[2017-10-05] MEDS: FOLIC ACID 1 MG TAB PO SCH (09:23)
[2017-10-05] MEDS: HEPARIN SODIUM,PORCINE 5,000 UNIT/ML 1 ML VIAL SQ SCH (09:24)
[2017-10-05] MEDS: MULTIVITAMINS, THERA 1 EACH TAB PO SCH (09:24)
[2017-10-05] MEDS: THIAMINE 100 MG TAB PO SCH (09:24)
[2017-10-05] MEDS: cefTRIAXone IN SWFI 1,000 MG/10 ML SYRINGE IVP SCH (13:54)
--- NOTE | 2017-10-05 17:47 | PN ---
PROGRESS NOTE DATE OF SERVICE: 10/05/2017. REASON FOR FOLLOWUP: Fever, likely pneumonia. INTERVAL HISTORY: The patient is afebrile. He has been breathing comfortably. The patient's chest pain has improved. Denies having any chest pain or shortness of breath or cough. EXAMINATION: Blood pressure is 106/72 with a pulse of 82, temperature 98.3. He is 98% on room air. General description is a middle-aged male lying in bed in no distress. RESPIRATORY SYSTEM: Unlabored breathing. Clear to auscultation anteriorly. HEART: S1, S2. Regular rate and rhythm. ABDOMEN: Soft. No tenderness. LABS: Hemoglobin is 13.5, white count 9.6, BUN of 26, creatinine 0.83. Blood culture has been negative. DIAGNOSTIC IMPRESSION AND PLAN: Patient admitted with fever with chest pain and pulmonary suspicious for possible pneumonia. The patient has shown overall clinical improvement. To finish therapy with oral Levaquin 5 mg daily for another 4-5 days. Continue with supportive care. MMODL / IJN: [id number] /
--- NOTE | 2017-10-05 21:33 | P.DS ---
Providers Date of admission: 10/03/17 18:58 Attending physician: Neisha Moe Consults: 10/01/17 22:25 Consult Physician Routine Consulting Provider: [facility] Consult Reason/Comments: chest pain Do you want consulting provider notified?: Yes, Notify in am 10/02/17 15:08 Consult Physician Routine Consulting Provider: Gale Munoz Consult Reason/Comments: Fever, history of IV drug abuse, possible Pneumonia Do you want consulting provider notified?: Yes Primary care physician: Stated None Hospital Course: This is a pleasant 8 years old male with past medical history of coronary artery disease status post cardiac cath, CVA/TIA with left-sided josiah-plegia and he uses cane/Walker , GERD, hypertension, alcohol abuse, IV drug abuse, Ugarte's esophagus with esophageal cancer, status post surgery/radiation with a partial esophagoctomy, is currently at [facility] for alcohol rehab, current smoker. He presents because of central chest pain radiating to the left arm for about one week duration, comes and goes and states for about 2 hours however is now getting progressively longer sustained for about half a day as per patient, the chest pain is increased with exertion, or when going upstairs or down stairs. Not associated with dyspnea, no nausea vomiting. No sweating. No change in urine or bowel habits. However he states he is peeing more than usual however he denies dysuria or urgency Patient was complaining of from cough with white phlegm for about one week duration In the ED patient had a fever of 101.4 on admission. CBC was unremarkable except for mild anemia at 11.3, INR 1.0, sodium 137, potassium 4.6, creatinine 0.6. LFTs were unremarkable, serial troponins were negative, proBNP is 75, chest x-ray shows pulmonary interstitial fibrotic changes with a new compared to old exam. Patient was suspected to have community-acquired pneumonia and was treated with antibiotic. ID consult is appreciated, patient showed interval improvement in his signs and symptoms that on the day of discharge he doesn't have any more chest pain, no dyspnea. His repeat chest x-rays was better with no evidence acute pulmonary disease. Patient was cleared by ID team for discharge on 5 more days of Levaquin. And because patient presented with chest pain he has been evaluated by cardiology which shows cardiac enzymes X2 to are normal, patient had 2-D echo and Doppler study which was reviewed by gsa coordinator. Tank Driver and cleared the patient for discharge and further workup can be done out-patient Problems and management plan were discussed with the patient and he verbalized understanding and acceptance. Patient was found stable and can be discharged to the community however he needs follow-up as an outpatient and he agrees. pt states he is going back to [place] for alcohol rehab where he came from originally to this hospital GENERAL: The patient is alert and oriented x3, not in any acute distress. Well developed, well nourished. HEENT: Pupils are round and equally reacting to light. EOMI. No scleral icterus. No conjunctival pallor. Normocephalic, atraumatic. No pharyngeal erythema. No thyromegaly. CARDIOVASCULAR: S1 and S2 present. No murmurs, rubs, or gallops. PULMONARY: Chest is clear to auscultation, no wheezing or crackles. ABDOMEN: Soft, nontender, nondistended, normoactive bowel sounds. No palpable organomegaly. MUSCULOSKELETAL: No joint swelling or deformity. EXTREMITIES: No cyanosis, clubbing, or pedal edema. NEUROLOGICAL: Gross neurological examination did not reveal any focal deficits. SKIN: No rash Time spent more than 35 minutes Patient Condition at Discharge: Good Plan - Discharge Summary Discharge Rx Participant: No New Discharge Prescriptions: New Folic Acid 1 mg PO DAILY@1200 tab Levofloxacin [Levaquin] 750 mg PO DAILY@1400 #5 tab Pantoprazole [Protonix] 40 mg PO AC-BRKFST #30 tablet.dr Continue traZODone HCL 50 - 150 mg PO HS guaiFENesin [guaiFENesin Oral Solution] 200 mg PO Q4H PRN PRN Reason: Cough Fluphenazine HCl [fluPHENAZine HCL] 1 mg PO DAILY@0600 Chlorpheniramine Maleate [Chlor-Trimeton] 4 mg PO Q4H PRN PRN Reason: ALLERGIES/ANXIETY Acetaminophen [Tylenol] 650 mg PO Q4H PRN PRN Reason: Fever And/ Or Pain Calcium/Magnesium 1000mg/500mg 1 tab PO TID PRN PRN Reason: MUSCLE CRAMPS busPIRone HCl [Buspar] 10 mg PO DIRECTED PRN PRN Reason: Anxiety cloNIDine HCL [Catapres] 0.1 mg PO Q4H PRN PRN Reason: Anxiety/BP Pantoprazole Sodium [Protonix] 40 mg PO DAILY@0600 Thiamine [Vitamin B-1] 100 mg PO DAILY PARoxetine [Paxil] 20 mg PO DAILY@0600 Multivitamins, Thera [Multivitamin (formulary)] 1 tab PO DAILY Nicotine 21Mg/24Hr Patch [Habitrol] 1 patch TRANSDERM DAILY #30 patch Discontinued Ibuprofen [Motrin] 600 mg PO Q6HR PRN PRN Reason: Pain Ondansetron [Zofran] 4 mg IM Q6H PRN PRN Reason: Nausea And Vomiting Ondansetron HCl [Zofran] 8 mg PO Q6H PRN PRN Reason: Nausea And Vomiting Discharge Medication List Acetaminophen [Tylenol] 650 mg PO Q4H PRN 10/01/17 [History] Calcium/Magnesium 1000mg/500mg 1 tab PO TID PRN 10/01/17 [History] Chlorpheniramine Maleate [Chlor-Trimeton] 4 mg PO Q4H PRN 10/01/17 [History] Fluphenazine HCl [fluPHENAZine HCL] 1 mg PO DAILY@0610/01/17 [History] Multivitamins, Thera [Multivitamin (formulary)] 1 tab PO DAILY 10/01/17 [History ] PARoxetine [Paxil] 20 mg PO DAILY@0610/01/17 [History] Pantoprazole Sodium [Protonix] 40 mg PO DAILY@0610/01/17 [History] Thiamine [Vitamin B-1] 100 mg PO DAILY 10/01/17 [History] busPIRone HCl [Buspar] 10 mg PO DIRECTED PRN 10/01/17 [History] cloNIDine HCL [Catapres] 0.1 mg PO Q4H PRN 10/01/17 [History] guaiFENesin [guaiFENesin Oral Solution] 200 mg PO Q4H PRN 10/01/17 [History] traZODone HCL 50 - 150 mg PO HS 10/01/17 [History] Folic Acid 1 mg PO DAILY@1200 tab 10/05/17 [Rx] Levofloxacin [Levaquin] 750 mg PO DAILY@1400 #5 tab 10/05/17 [Rx] Nicotine 21Mg/24Hr Patch [Habitrol] 1 patch TRANSDERM DAILY #30 patch 10/05/17 [ Rx] Pantoprazole [Protonix] 40 mg PO DHARMESH-BRKFST #30 tablet. 10/05/17 [Rx] Follow up Appointment(s)/Referral(s): Fabian Hernandez MD [STAFF PHYSICIAN] - 1 Week (Cardiology) None,Stated [Primary Care Provider] - 1-2 days Patient Instructions/Handouts: Chest Pain (DC) Activity/Diet/Wound Care/Special Instructions: Cardiac diet Activity is limited to till you see your doctor Discharge Disposition: HOME SELF-CARE
--- NOTE | 2017-10-11 09:19 | CDI ---
Last Revision, February 2017 Documentation Clarification Form Date: 10/11/17 From: Nina Evans Phone: If you have a question regarding this query, please contact Britni Thompson at [phone] between 8am and 5pm. Admit Date: 10/03/2017 6:58:00 PM Patient Name: Dominguez Engle Visit Number: [id number] Discharge Date: 10/05/17 ATTENTION: The Clinical Documentation Specialists (CDI) and [facility] Coding Staff appreciate your assistance in clarifying documentation. Please respond to the clarification below the line at the bottom and electronically sign. The CDI & [facility] Coding staff will review the response and follow-up if needed. Please note: Queries are made part of the Legal Health Record. If you have any questions, please contact the author of this message via ITS. Dr. Hernandez E Sheet A diagnosis of anemia lacks specificity to accurately reflect your patients severity of condition and clarification is needed. History/Risk Factors: Patient was admitted for chest pain and pneumonia. Patient also has a history of CAD, old MT and alcoholism. Clinical indicators: Decrease hgb & hct. Hemoglobin: 10.6 Hematocrit: 32.8 In order to capture the severity of condition, please clarify the type of anemia and etiology if known: Acute blood loss anemia Chronic blood loss anemia Iron deficiency anemia Drug induced anemia Anemia due to malignancy Nutritional anemia Unable to determine Other, please specify unable to determine, see previous notes MTDD
== END 2017-10-05 18:00 | disposition home or self-care (01) | DRG 194 ==
LOC: EC 18:40 → 3OBS 22:25 → OBSVTOIN 10-03 18:58
PROVIDERS: ADMIT Hospitalist; ATTEND Hospitalist
DX: J18.9 Pneumonia, unspecified organism (principal); I69.954 Hemiplegia and hemiparesis following unspecified cerebrovascular disease affecting left non-dominant side; D64.9 Anemia, unspecified; E78.5 Hyperlipidemia, unspecified; F17.210 Nicotine dependence, cigarettes, uncomplicated; I10 Essential (primary) hypertension; I25.10 Atherosclerotic heart disease of native coronary artery without angina pectoris; I25.2 Old myocardial infarction; K21.9 Gastro-esophageal reflux disease without esophagitis; R07.9 Chest pain, unspecified; F10.20 Alcohol dependence, uncomplicated; Z92.3 Personal history of irradiation; Z86.14 Personal history of Methicillin resistant Staphylococcus aureus infection; Z85.01 Personal history of malignant neoplasm of esophagus; Z79.899 Other long term (current) drug therapy; Z88.5 Allergy status to narcotic agent; Z88.8 Allergy status to other drugs, medicaments and biological substances; Z90.49 Acquired absence of other specified parts of digestive tract; Z83.3 Family history of diabetes mellitus; Z80.8 Family history of malignant neoplasm of other organs or systems
CPT/HCPCS: 36415; 71046; 80048; 80053; 81003; 82550; 82553; 83735; 83880; 84132; 84484; 85025; 85610; 85730; 87040; 87086; 87449; 87502; 93005; 93306; 96360; 99285